=== PATIENT | female | born 1960 | race Caucasian/White ===

== ENCOUNTER → 2016-04-28 | Outpatient (REF) | LOC: M LAB 11:51 | PROVIDERS: ATTEND Nurse Practitioner Adult Health | DX: Z02.9 Encounter for administrative examinations, unspecified (principal) ==

== ENCOUNTER 2017-05-28 09:03 | Day surgery (SDC) | payer OTHER ==
[~2017-05-28 09:03] MED LIST: LIDOCAINE 2% MDV 20 ML VIAL As Ordered; PROPOFOL 200 MG/20 ML VIAL As Ordered
[2017-05-28] MEDS: NS 1,000 ML IV (09:15)
[2017-05-28] MEDS ORDERED: PROPOFOL 200 MG/20 ML VIAL As Ordered (10:45)
== END 2017-05-28 11:35 | disposition home or self-care (01) ==
LOC: M OPP 09:03
DX: R13.10 Dysphagia, unspecified (principal); K22.2 Esophageal obstruction; K22.8 Other specified diseases of esophagus; K44.9 Diaphragmatic hernia without obstruction or gangrene; K58.9 Irritable bowel syndrome, unspecified; K21.9 Gastro-esophageal reflux disease without esophagitis; M46.07 Spinal enthesopathy, lumbosacral region; M72.0 Palmar fascial fibromatosis [Dupuytren]; I73.00 Raynaud's syndrome without gangrene; G47.30 Sleep apnea, unspecified; F17.200 Nicotine dependence, unspecified, uncomplicated; Z79.899 Other long term (current) drug therapy; Z80.42 Family history of malignant neoplasm of prostate; Z80.1 Family history of malignant neoplasm of trachea, bronchus and lung; Z80.3 Family history of malignant neoplasm of breast; Z80.41 Family history of malignant neoplasm of ovary
CPT/HCPCS: 43249

== ENCOUNTER → 2019-04-02 | Outpatient (CLI) | payer OTHER ==
[~2019-04-02] MED LIST changes: +CALC500T61 PO; -LIDOCAINE 2% MDV 20 ML VIAL As Ordered; -PROPOFOL 200 MG/20 ML VIAL As Ordered; +RANI300C PO
--- NOTE | 2019-04-02 13:06 | REP ---
Clinical: slip and fall with back pain . Technique: AP, lateral, bilateral oblique, and coned-down views. Findings: Alignment and lordosis is maintained. The vertebral bodies including transverse process and spinous processes are intact and normal. There is no evidence for acute fracture / compression injury or subluxation. No evidence for spondylolysis or spondylolisthesis. No significant degenerative change is noted. Impression: Normal lumbosacral spine radiograph series. Electronically Signed by Louie Mitchell MD 04/02/2019 12:58 P
--- NOTE | 2019-04-02 13:07 | REP ---
Clinical: Trauma. Fall. Technique: AP, lateral, bilateral oblique views of the left wrist. Findings: Comminuted Colles' fracture of the distal radial metaphysis with posterior angulation and soft tissue swelling. Impression: Comminuted Colles' fracture of the distal radial metaphysis. Electronically Signed by Louie Mitchell MD 04/02/2019 12:59 P
--- NOTE | 2019-04-02 13:09 | REP ---
Clinical: Trauma. Fall. Technique: AP, lateral, oblique views of the left hand. Findings: There is a comminuted Colles' fracture of the distal radial metaphysis with posterior angulation and soft tissue swelling. Acute versus chronic fracture at the fifth digit distal interphalangeal joint cannot be excluded and should be correlated clinically. Impression: Comminuted Colles' fracture of the distal radius. Acute versus old injury at the fifth digit DIP joint. Electronically Signed by Louie Mitchell MD 04/02/2019 01:00 P
--- NOTE | 2019-04-02 13:10 | REP ---
Clinical: Trauma. Fall. Technique: AP and lateral views of the sacrum (three total views). Findings: No definite acute fracture. However, subtle nondisplaced distal sacral injury cannot be excluded. Bilateral sacroiliac joints are relatively age-appropriate. Impression: No definite acute fracture. However, subtle nondisplaced distal sacral injury cannot be excluded. Electronically Signed by Louie Mitchell MD 04/02/2019 01:02 P
== END ==
LOC: M WUC 12:00
PROVIDERS: ATTEND Physician Assistant
DX: S52.532A Colles' fracture of left radius, initial encounter for closed fracture (principal); S30.0XXA Contusion of lower back and pelvis, initial encounter; X58.XXXA Exposure to other specified factors, initial encounter; Y92.9 Unspecified place or not applicable

== ENCOUNTER → 2021-06-04 | Outpatient (CLI) | payer OTHER | LOC: M WHC 10:37 | PROVIDERS: ATTEND Nurse Practitioner Adult Health | DX: Z12.31 Encounter for screening mammogram for malignant neoplasm of breast (principal); M81.0 Age-related osteoporosis without current pathological fracture; Z80.3 Family history of malignant neoplasm of breast; Z80.0 Family history of malignant neoplasm of digestive organs ==

== ENCOUNTER → 2023-10-28 | Outpatient (CLI) | payer OTHER | LOC: M WHC 13:36 | PROVIDERS: ATTEND Nurse Practitioner Family | DX: Z12.31 Encounter for screening mammogram for malignant neoplasm of breast (principal); Z13.820 Encounter for screening for osteoporosis ==